=== PATIENT | male | born 1980 | race Caucasian/White ===

== ENCOUNTER → 2023-12-11 14:36 | Outpatient (REF) | payer SELFPAY | LOC: HWRAD 14:36 | PROVIDERS: ATTENDING PHYSICIAN Family Medicine | DX: E78.00 Pure hypercholesterolemia, unspecified (principal); Z82.49 Family history of ischemic heart disease and other diseases of the circulatory system | CPT/HCPCS: 75571 ==

== ENCOUNTER 2024-03-31 19:42 | Emergency (ER) | payer OTHER, SELFPAY ==
[2024-03-31 19:44] VITALS: BP 131/96
[2024-03-31 20:43] VITALS: BMI 28.6
--- NOTE | 2024-03-31 21:02 | ED.GENMED ---
History of Present Illness
General
Chief Complaint: Skin Surface Trauma
Time Seen by Provider: 03/31/24 20:33
History of Present Illness
History of Present Illness:
43-year-old male with history of hyperlipidemia presenting to the emergency department with scalp wound. Patient reports prior to arrival he struck the top of his head on his car door. Denies loss of consciousness. He is not on any blood
thinners. Notes mild headache. Denies visual changes, nausea, vomiting, weakness, numbness to his extremities. Denies fever or systemic symptoms. Denies additional acute medical complaints
Past History
Past History
ED Past Medical History: None
ED Past Surgical History: Other (Hernia repair)
Social History
Tobacco: Non-smoker
Alcohol: Occasional
Personal:
Living: with family
Employment: Employed
Phy Exam
Physical Exam
Physical Exam:
General: Well-appearing, no clinical signs of dehydration, nontoxic and in no acute distress
HEENT: protecting airway, pupils equal and reactive
Head: 2 cm laceration to the parietal aspect of the skin, bleeding controlled
Neck: appears supple, no tenderness to cervical spine, no step-off
CV: Normal heart rate
Resp: No accessory muscle use, no increased work of breathing
Abd: No distention
Extremities: No deformities, no swelling
Neuro: alert, no focal neurologic deficit
: deferred
Rectal: deferred
Psych: Normal affect
Skin: Intact
Course
Orders/Labs/Results
Orders:
Orders
03/31/24 20:56
Tetanus/Diphth/Acelpertussis [Adacel] 0.5 ml IM .ONCE ONE
Vital Signs
Initial and Last Documented VS:
Initial Vital Signs
Temp Pulse Resp BP Pulse Ox
98 F 61 18 131/96 97
03/31/24 19:44 03/31/24 19:44 03/31/24 19:44 03/31/24 19:44 03/31/24 19:44
Last Documented Vital Signs
Temp Pulse Resp BP Pulse Ox
98 F 61 18 131/96 97
03/31/24 19:44 03/31/24 20:33 03/31/24 19:44 03/31/24 19:44 03/31/24 19:44
Procedures
Laceration Closure
Superior Scalp:
Status of Wound: clean
Size of Wound in cm: 2
Preparation: cleaned with saline
Anesthesia: 1% Lidocaine
Type of Closure: single layer closure
Skin Closure Material: skin maryanne
Additional information:
2 maryanne
MDM/Problems Addressed
MDM/Problems Addressed:
43-year-old male presenting with scalp wound after striking his head on his car door.
Vital signs are normal. On exam patient is well-appearing, no acute distress or discomfort. Mild laceration to the scalp. No focal neurologic deficits. Patient is [place] CT head negative, without indication for imaging. No tenderness to the
cervical spine without concern for severe axial loading. Will update tetanus. Wound was repaired. Please see procedure note. Otherwise feel stable for discharge with continued outpatient supportive therapy. Return precautions discussed and
patient verbalized understanding
*Critical Care Note
Total Time (30-74mins, 75-104mins- exclusive of procedures): Not Applicable
ED Attending Note
-
Portions of this chart may have been created with voice recognition software.� Occasional wrong word or��sound alike� substitutions may have occurred due to the inherent limitations of voice recognition software.
Discharge Plan
Departure
Prescriptions:
No Action
hydrocodone-acetaminophen 1 TABLET tablet
1 tab PO Q4HPRN PRN (Reason: pain) Qty: 10 0RF
Referrals:
Jose Gorman MD [Family Provider] -
Interventions
Interventions:
*Risk Screen - Suicide Last Done: 03/31/24 19:44
ED-Skin Assessment Last Done: 03/31/24 20:42
Discharge Date and Time
Print Language: TANZANIAN
[2024-03-31] MEDS: ADACEL 0.5 ML IM (21:03)
== END 2024-03-31 21:25 | disposition home or self-care (01) ==
LOC: EMR 19:42
PROVIDERS: EMERGENCY PHYSICIAN Student in an Organized Health Care Education/Training Program; FAMILY PHYSICIAN Family Medicine
DX: S01.01XA Laceration without foreign body of scalp, initial encounter (principal); W22.09XA Striking against other stationary object, initial encounter; Z23 Encounter for immunization; E78.00 Pure hypercholesterolemia, unspecified
CPT/HCPCS: 99282; 12001; 90471; 90715